=== PATIENT | female | born 1965 | race Caucasian/White ===

== ENCOUNTER 2016-10-30 10:30 | Inpatient (IN) | payer BC ==
[~2016-10-30] VITALS: Ht 157.5 cm; Wt 94.5 kg
--- NOTE | ~2016-10-30 | OR ---
PATIENT'S NAME: CHRIS KUNZ [facility] AGE: 51 Y [address] ROOM: [place] [id number] LOCATION: [facility] ADMIT DATE: 10/30/2016 OR/Procedure Report DISCHARGE DATE: 11/03/2016 FAMILY PHYSICIAN: PHYSICIAN, NO ATTENDING PHYSICIAN: Julio Boothe SURGEON: Julio Boothe MD INFORMATICS EDUCATOR: Ranjeet Weems PA-C. DATE OF PROCEDURE: 10/30/[address] BOOTHE / 11-06-2016 / MILAGROS PREOPERATIVE DIAGNOSES: Right Gustilo Davin type IIIB open fracture and dislocation of the talus. POSTOPERATIVE DIAGNOSES: Right Gustilo Davin type IIIB open fracture and dislocation of the talus. PROCEDURE: 1. Irrigation and debridement of right ankle fracture wound. Dimensions 12 cm in length x 4 cm width x 10 cm in depth. Debridement included skin, subcutaneous tissue, fascia, muscle, and bone. 2. Placement of spanning external fixator of the right ankle. 3. Complex primary closure of traumatic open fracture, soft tissue wound using nylon suture. 4. Use of intraoperative fluoroscopy, less than 1 hour. ANESTHESIA: General endotracheal anesthesia. FLUIDS: See Anesthesia report. ESTIMATED BLOOD LOSS: Less than 50 mL. SPECIMEN: None. COMPLICATIONS: None. DISPOSITION: Stable in PACU. COUNTS: All counts correct. IMPLANTS: Include a Jeri Maritza 3 spanning external fixator device. INDICATIONS: Ms. Kunz is a pleasant 51-year-old female, who underwent the noted procedures above. The risks, benefits, and alternatives pursuing surgical intervention were discussed with the patient in detail. She elected to proceed with surgery. Anesthesia was consulted for their perioperative evaluation of the patient. A preoperative nerve block was placed for pain control by the Anesthesia team. I marked the patient's right lower extremity PATIENT'S NAME: CHRIS KUNZ [facility] AGE: 51 Y [address] ROOM: [place] [address] LOCATION: [facility] ADMIT DATE: 10/30/2016 OR/Procedure Report DISCHARGE DATE: 11/03/2016 FAMILY PHYSICIAN: PHYSICIAN, NO ATTENDING PHYSICIAN: Julio Boothe indicating correct surgical site. DESCRIPTION OF PROCEDURE: The patient was brought from the holding area the operating room. A time-out was performed. General endotracheal anesthesia was administered. The patient has Ancef antibiotic was re-dosed intraoperatively. The right lower extremity then prepped and draped in a sterile fashion. Use of an Esmarch and tourniquet was deferred. I turned my attention the lateral aspect of the ankle. There is a 12 cm x 10 x 4 cm x 10 cm in depth traumatic wound. The talus was now rotated as it appeared to have been previously fully dislocated and an attempted reduction was done at the outside hospital. [place] had been placed to approximate the skin an outside institution. The kunal were removed. The wound was copiously irrigated with normal sterile saline solution. Using a 3 L of pulsatile normal sterile saline solution via pulsatile lavage. I carried out a thorough debridement of the nonviable skin, subcutaneous tissue, muscle, fascia, and bone. Notably, there was significant damage to the lateral dome of the talus and talar head. A small portion of the talus had soft tissue attachment at the level of the medial neck. The rest the soft tissue was traumatically stripped at the time of her initial injury. I performed a reduction maneuver and the talus did reduce into place. I brought the ankle and foot through a range of motion and found to be stable. In order to maintain the reduction, I placed a spanning external fixator. Two pins were placed in the tibia. One pin was placed in the calcaneus, and one pin was placed in the first metatarsal. A series of pin to bar and bar to bar clamps were used to bring the ankle out to length and to maintain the reduction of the talus. The pin at the first metatarsal was used to assistant general manager dorsiflexing the ankle. I introduced intraoperative fluoroscopy and confirmed the successful reduction of the talus and successful placement of a spanning external fixator device with the ankle in neutral dorsiflexion. I turned my attention back to the traumatic wound. A layered closure using nylon suture to approximate it was undertaken. Sterile dressing was placed in the form of Xeroform, followed by 4x4, Webril, and Kishor bandage. The purposes of providing compression. The patient was then transferred from the operating table onto the hospital bed and extubated. She was brought to the recovery room in stable condition. There were no intraoperative complications noted. PATIENT'S NAME: CHRIS KUNZ [facility] AGE: 51 Y [address] ROOM: [address] [address] LOCATION: G3N ADMIT DATE: 10/30/2016 OR/Procedure Report DISCHARGE DATE: 11/03/2016 FAMILY PHYSICIAN: PHYSICIAN, NO ATTENDING PHYSICIAN: Julio Boothe Of note, my PA, Ranjeet Weems PA-C, played an integral role in the intraoperative care of this patient. This included preoperative positioning, intraoperative expert retraction, and closing and dressing functions. IMPRESSION: The patient is status post the noted procedures above. PLAN: The patient will be nonweightbearing on the right lower extremity. She will be instructed to rest, ice, and elevate the leg. There is a kickstand in the posterior aspect of the external fixator to offload the heel and prevent pressure ulcer. Antibiotics in the form of Ancef will be continued per open fracture protocol. The hospitalist will continue to manage the patient's concomitant medical comorbidities. A postoperative CT scan will be obtained to assess the reduction. Dressings will be changed on postoperative day #2. I will continue to follow the patient closely in the postoperative period. MD ALICE POWELL/modfrankie /[id number] CORRECTED PER DR. BOOTHE / 11-06-2016 / KLD d: 10/31/16 0056 t: 11/06/16 1526, OPERATIVE SUMMARY
--- NOTE | ~2016-10-30 | DS ---
PATIENT'S NAME: CHRIS KUNZ [facility] AGE: 51 Y [address] ROOM: [address] [address] LOCATION: G3 ADMIT DATE: 10/30/2016 Discharge Summary DISCHARGE DATE: 11/03/2016 FAMILY PHYSICIAN: PHYSICIAN, NO ATTENDING PHYSICIAN: Julio Murry ADMITTING DIAGNOSIS: Right Gustilo Davin type IIIB open fracture and dislocation of the talus. DISCHARGE DIAGNOSIS: Right Gustilo Davin type IIIB open fracture and dislocation of the talus. SECONDARY DIAGNOSIS: Seasonal allergies. CONSULTATION: To the Hospitalist Service for medical management. PROCEDURES: The patient underwent the following procedures by Dr. Murry on October 30, 2016. 1. Irrigation and debridement of right ankle fracture wound. Dimension 12 cm in length x 4 cm in length x 10 cm in depth. Debridement including skin, subcutaneous tissue, fascia, muscle, and bone. 2. Placement of spanning external fixator of the right ankle. 3. Complex primary closure of traumatic open fracture, soft tissue wound using nylon suture. HISTORY OF PRESENT ILLNESS: The patient is a pleasant 51-year-old female, who was working on a roof when the ladder gave way on the day of admission. She fell approximately 10 feet down onto her right ankle. The patient reported rolling the ankle at that time. Also, she reported immediate pain, discomfort, and a wound with exposed bone at the lateral aspect of the ankle. She presented to an outside institution, where she was seen and evaluated. The wound was washed out surgically with the talus being relocated in the mortise, and the wound was subsequently closed. She was also splinted at that time. Relieving factors for the patient included rest, ice, elevation, and immobilization prior to surgery. She reported the pain at 10/10 at the time of the injury. When seen, the patient reported pain 3/10, and the Anesthesia Team provided her a regional block. When seen, the patient denied any constitutional symptoms such as fevers, chills, or night sweats. She also denied any dizziness, chest pain, shortness of breath, blurred vision, nausea, vomiting, or diarrhea. HOSPITAL COURSE: The patient was admitted to [facility] from an outside institution on October 30, 2016. She was taken to the OR for the above described procedure and tolerated it well. The patient was kept for approximately 72 hours of IV antibiotics in the form of Ancef and was switched over to p.o. medication prior to discharge. The patient was kept under PATIENT'S NAME: CHRIS KUNZ [facility] AGE: 51 Y [address] ROOM: [id number] [place], [place] [address] LOCATION: [facility] ADMIT DATE: 10/30/2016 Discharge Summary DISCHARGE DATE: 11/03/2016 FAMILY PHYSICIAN: PHYSICIAN, NO ATTENDING PHYSICIAN: Julio Murry adequate pain control. Her medications were optimized during admission, and medications were also adjusted during her admission for this. The Hospitalist Service followed the patient medically during her admission and optimized her for discharge. On November 03, 2016, the patient was found to be stable, and arrangements were made for her to be discharged home at that time. DISCHARGE MEDICATIONS: New medications: 1. Colace 100 mg p.o. b.i.d. p.r.n. constipation. 2. Lovenox 40 mg subcu daily. 3. Oxycodone 10 mg extended release p.o. q.12 hours. 4. Florastor 250 mg p.o. b.i.d. 5. Percocet 5/325 one to two tabs p.o. every 4 hours as needed for pain. 6. Keflex 500 mg p.o. t.i.d. 7. Diazepam 5 mg p.o. q.6 hours p.r.n. muscle spasm. 8. Levothyroxine 25 mcg p.o. daily. 9. The patient also was continued on her Zyrtec 10 mg p.o. daily. DISCHARGE INSTRUCTIONS: The patient is to be nonweightbearing of the right lower extremity. Her diet is as tolerated. Home Health will follow up with the patient for dressing changes. The patient is to keep her bandages clean, dry, intact. The patient was instructed to ice and elevate her right lower extremity. FOLLOWUP: The patient is to follow up with her family doctor in approximately 6 weeks for a thyroid check. The patient is to follow up with Dr. Murry in approximately 1 week for postoperative followup. DISCHARGE STATUS: GOOD MANDO J ANDRES, PA-C FOR MD CARIDAD POWELL/marty /[id number] d: 11/13/16 0124 t: 11/20/16 1634, DISCHARGE SUMMARY
--- NOTE | ~2016-10-30 | CON ---
PATIENT'S NAME: CHRIS KUNZ [facility] AGE: 51 Y [address] ROOM: [place] [address] LOCATION: [facility] ADMIT DATE: 10/30/2016 Consultation DISCHARGE DATE: FAMILY PHYSICIAN: PHYSICIAN, UNKNOWN ATTENDING PHYSICIAN: JG BOOTHE DATE OF CONSULTATION: 10/30/2016 REFERRING PHYSICIAN: Prakash RODRIGUEZ MD CHIEF COMPLAINT: Right ankle and foot pain. HISTORY OF PRESENT ILLNESS: Ms. Kunz is a pleasant 51-year-old female, who was working on a roof when the ladder gave way. She fell approximately 10 feet down onto her right ankle. She reports rolling the ankle. At that time, she reported immediate pain, discomfort, and a wound with exposed bone at the lateral aspect of the ankle. She presents to an outside institution, where she was seen and evaluated. The wound was washed out, the talus was relocated in the mortise, and the wound was subsequently closed. She was also splinted. Alleviating factors for the patient include rest, ice, elevation, and immobilization. She does report pain at 10/10 at the time of injury. She reports her pain is more of 3/10 and the Anesthesia team was provided a regional block. She currently denies any constitutional symptoms such as fever, chills, or night sweats. She also denies any dizziness, chest pain, shortness of breath, blurred vision, nausea, vomiting, or diarrhea. REVIEW OF SYSTEMS: A 10-point review of systems was undertaken and is negative other than what was noted above. PAST MEDICAL HISTORY: None. ALLERGIES: NO KNOWN DRUG ALLERGIES. MEDICATIONS: None. PHYSICAL EXAMINATION: VITAL SIGNS: Temperature pending, respirations 12, heart rate 74, and blood pressure 115/62. HEENT: Normocephalic and atraumatic. Extraocular movements are intact. PERRLA. Moist mucous membranes. Oropharyngeal airway is clear. PATIENT'S NAME: CHRIS KUNZ [facility] AGE: 51 Y [address] ROOM: [place] [address] LOCATION: [facility] ADMIT DATE: 10/30/2016 Consultation DISCHARGE DATE: FAMILY PHYSICIAN: PHYSICIAN, UNKNOWN ATTENDING PHYSICIAN: JG BOOTHE NECK: Supple. Trachea is in the midline. CARDIOVASCULAR: Regular rate and rhythm. CHEST: Normal symmetric respirations observed bilaterally. ABDOMEN: Soft, nontender, and nondistended. EXTREMITIES/MUSCULOSKELETAL: Right lower extremity: Focal examination of the patient's right lower extremity reveals she is grossly neurologically intact distally. Compartments of the thigh, leg, and foot are soft. There is good capillary refill in the toes. The patient just recently had a medial nerve block placed, but prior to that noted full sensation in the foot. She has a large open wound at the lateral aspect of the ankle with metallic kunal in place. IMAGING: Plain radiographs of the left ankle reveal evidence of a fracture dislocation of the talus. CT scan also reveals evidence of a fracture dislocation of the talus. The talus is malaligned. There is air in the soft tissues and significant soft tissue swelling. IMPRESSION: Right Gustilo-Davin type IIIB open fracture dislocation of the talus. PLAN: I had a long discussion with the patient today regarding her right ankle. Her injury is quite severe. I am recommending urgent irrigation and debridement of the right ankle with an open reduction of the talus and placement of a spanning external fixator device. I discussed the risks, benefits, and alternatives to pursuing a surgical intervention in detail. I discussed the risks of anesthesia, infection, bleeding, and/or injury to neurovascular structures. The patient's pain is fairly well controlled now that she has received a regional nerve block by the Anesthesia team. The patient expressed understanding of this. I explained her that for now, the best we can do is emergently get her to the operating room. The outcome for injury such as this is typically quite poor, may even result in fusion of the ankle. The likelihood of the talus bone going on to avascular necrosis is high. She will be nonweightbearing on the right lower extremity for now. Pain control will be maintained. Ancef antibiotics will be continued per open fracture protocol. The Anesthesia team was already placed a peripheral nerve block. Her tetanus has been updated. I did discuss her case with the transferring physician nurses medical assistants phlebotomists, Katie Berry PA-C from the [facility]. He and Dr. Starkey, the orthopedic surgeon communications operator performed an irrigation and debridement of the right ankle and foot wound, attempted to relocate the talus, and primarily closed the skin. The patient was transferred for definitive orthopedic care under my acceptance via fixed-wing aircraft. We will plan to PATIENT'S NAME: CHRIS KUNZ [facility] AGE: 51 Y [address] ROOM: [address] [address] LOCATION: [facility] ADMIT DATE: 10/30/2016 Consultation DISCHARGE DATE: FAMILY PHYSICIAN: PHYSICIAN, UNKNOWN ATTENDING PHYSICIAN: JG BOOTHE take the patient for surgery this evening. She is currently n.p.o. MD ALICE POWELL/marty /[id number] d: 10/31/16 0017 t: 10/31/16 0840, CONSULTATION REPORT
--- NOTE | ~2016-10-30 | CON ---
PATIENT'S NAME: VIKY KUNZ [facility] AGE: 51 Y [address] ROOM: [address] [address] LOCATION: G3N ADMIT DATE: 10/30/2016 Consultation DISCHARGE DATE: FAMILY PHYSICIAN: PHYSICIAN, UNKNOWN ATTENDING PHYSICIAN: JG BOOTHE DATE OF CONSULTATION: 10/30/2016 REFERRING PHYSICIAN: Prakash RODRIGUEZ MD REQUESTING PHYSICIAN: Jg Boothe MD CHIEF COMPLAINT: Right ankle fracture. HISTORY: History of present illness is obtained from visiting with Ms. Kunz herself, who is a reasonable historian; however, struggles to give extended information, given her level of pain. Also, was obtained from reviewing the chart and records sent with the patient from [place], [place]. Ms. Viky Kunz is a 51-year-old female, who resides in [place], [place]. She was removing shingles from the roof of their home last evening, approximately 9 o'clock at night when the ladder she was working from slipped. She fell onto concrete. She landed on her heels. At that point, she had an open fracture of her right ankle. She was ultimately driven to the Emergency Room in [place], [place], where she was seen. Ancef was administered along with tetanus and Dilaudid for pain control. Ultimately, she was taken to the OR for a washout and reapproximation of the talus the best they could. She was ultimately placed in a posterior splint, and kunal were used to close the wound. At that point, the thought was to take her to the OR in [place]. However, circumstances changed, and she was ultimately transferred to [facility] via fixed-wing, and arrives at our facility today. We are asked to consult for Medical consultation and clearance for OR. The patient has no past medical history, she states outside of some hypothyroidism, of which she is not necessarily always compliant with taking her medications for. The patient is quite drowsy throughout our interview. She is on EtCO2 monitor. This raised into the 50s as she dozes off. When she is awake and interacting, she is grimacing, crying, and having difficulty conversing, given her level of pain that she is rating 10/10. The patient really denies any pain elsewhere other than her right ankle at this point. She has had no fevers or chills. PATIENT'S NAME: VIKY KUNZ [facility] AGE: 51 Y [address] ROOM: [id number] [place], [place] [address] LOCATION: [facility] ADMIT DATE: 10/30/2016 Consultation DISCHARGE DATE: FAMILY PHYSICIAN: PHYSICIAN, UNKNOWN ATTENDING PHYSICIAN: JG BOOTHE REVIEW OF SYSTEMS: Reviewed and is negative outside of what is recorded in the history of present illness. PAST MEDICAL HISTORY: 1. Questionable hypothyroidism per patient. 2. Seasonal allergies, for which she takes medication for p.r.n. MEDICATIONS: Zyrtec 10 mg p.o. daily p.r.n. seasonal allergies. PAST SURGICAL HISTORY: 1. x3. 2. Tonsillectomy. 3. Appendectomy. SOCIAL HISTORY: The patient is . She lives as stated in [place], [place]. She has four children and two grandchildren. Tobaccoism. The patient does smoke one half a pack of tobacco daily and has x15 years. Alcohol: She denies use. Illicit drugs use: The patient denies. PERTINENT LABORATORY DATA AND X-RAYS: 1. Three-view of the right ankle demonstrates a fracture dislocation of the talus/calcaneus with significant anterior-lateral dislocation of the fracture fragments. 2. CT of the right ankle without contrast shows open injury to the right ankle with dislocated talus and multiple fractures. See report for more specific details. 3. Non-contrast CT of the C-spine showed no acute subluxation, dislocation, or fracture of the C-spine. 4. Non-contrast CT of the T-spine, no acute traumatic abnormality. 5. CT of the lumbar spine, no acute traumatic abnormality. 6. CT of the pelvis, no acute traumatic abnormality. Laboratory data from 10/29/2016 showed a white count of 11,100, hemoglobin of 16.7, MCV of 94.7, and platelets of 234. PT is 11.0 and INR is 1.04. Chemistry panel showed a potassium slightly low at 3.4, chloride of 104, bicarb of 23, BUN of 46.27, and creatinine of 1.3. LFTs were within normal limits. UA was negative. Urine tox screen was negative. PATIENT'S NAME: VIKY KUNZ [facility] AGE: 51 Y [address] ROOM: [address] [place] [id number] LOCATION: [facility] ADMIT DATE: 10/30/2016 Consultation DISCHARGE DATE: FAMILY PHYSICIAN: PHYSICIAN, UNKNOWN ATTENDING PHYSICIAN: JG BOOTHE PHYSICAL EXAMINATION: VITAL SIGNS: Temperature was 98.8, pulse was 10, respirations were around 8, blood pressure was 112/69, and O2 saturation was 91% on room air. EtCO2 monitor ranges from 45 to 50s. BMI is 36.9. GENERAL: Well developed and obese 51-year-old female, who is in obvious distress and pain throughout our interview. She grimaces and cries out throughout our interview process. HEENT: Normocephalic and atraumatic. Mucous membranes are moist. NECK: No thyromegaly that I can appreciate. CHEST: Diminished, but clear to auscultation. CARDIOVASCULAR: Regular rhythm and rate. No murmurs, bruits, or adventitious sounds. ABDOMEN: Obese, soft, and nontender. No organomegaly was noted. EXTREMITIES: The patient does have a splint placed to the right ankle. She is neurologically intact. NEUROLOGIC: Cranial nerves II through XII were grossly intact. She is able to move all of her extremities. She will follow commands. She is alert and orientated; however, somewhat drowsy and does awaken easily when aroused during our interview for answers. ASSESSMENT AND PLAN: A 51-year-old female with a right ankle open fracture following an approximate ten-feet fall off a ladder. Dr. Boothe is to assess the patient. 1. Poorly-controlled pain. The patient is not controlled in terms of pain, and unfortunately is having difficulties with respiratory status, given the amount of morphine that the patient has received. Per verbal report, the patient has received approximately 62 mg of morphine from approximately 1 a.m. till 10 a.m. this morning. Her respirations are slightly depressed. We will need to monitor her closely. In lieu of this, I believe it will be a good idea to go ahead and get Anesthesia involved for a block. This was discussed with Dr. Boothe, who concurs. We will consult Anesthesia. 2. Deep vein thrombosis prophylaxis is currently on hold. We will use sequential compression devices in the interim awaiting the OR. 3. Obesity with a body mass index of 36.9. 4. Seasonal allergies, stable. 5. Tobaccoism. We will offer nicotine patch in the postoperative period if she is interested. BRIANNA BIGGS PA-C FOR BALJEET MORALES MD PATIENT'S NAME: VIKY KUNZ [facility] AGE: 51 Y [address] ROOM: [place] [address] LOCATION: [facility] ADMIT DATE: 10/30/2016 Consultation DISCHARGE DATE: FAMILY PHYSICIAN: PHYSICIAN, UNKNOWN ATTENDING PHYSICIAN: JG BOOTHE/marty /[id number] d: 10/30/16 2259 t: 11/05/16 1653, CONSULTATION REPORT
--- NOTE | 2016-10-30 11:46 | NUR ---
PT is 51 y/o female admit for right dislocated/fx'd ankle for . Pt is extremely drowsy from pain meds given en route. Pt arrived via fixed wing. Pt fell off ladder while working and has open fx to r)ankle. Multiple abrasions from fall. O2 per NC at 3L. Monitors on per protocol. No allergies. Hx sinus problems and walking pneumonia. Smoker 1/2 PPD.
[2016-10-30] MEDS ORDERED: ZYRTEC10 MG PO (14:47)
[2016-10-30 15:49] LABS: BASOPHIL % 0.4 %; EOSINOPHIL # 0.4 K/uL (0.0-0.5); EOSINOPHIL % 3.7 %; HEMATOCRIT 40.2 % (33.0-46.0); HEMOGLOBIN 13.3 g/dL (10.0-15.0); IMMATURE GRANULOCYTE % 0.4 %; LYMPHOCYTE # 2.3 K/uL (0.8-4.0); MCH 31.3 pg (27.0-34.0); MCHC 33.1 gm/dL (32.0-36.5); MCV 94.6 fl (83.0-98.0); MONOCYTE # 0.7 K/uL (0.0-1.0); MONOCYTE % 6.9 %; MPV 9.8 fl (9.4-12.4); NEUTROPHIL # (ANC) 6.6 K/uL (1.8-7.8); NEUTROPHIL % 65.6 %; NRBC % 0 /100WBC (0-0.00); PLATELET COUNT 206 K/uL (150-450); RBC 4.25 M/uL (3.50-5.50)
[2016-10-30 16:23] LABS: ANION GAP 8.9 (10.0-19.0); CALCIUM 7.7 mg/dL (8.5-10.5); CREATININE 1.1 mg/dL (0.5-1.1); POTASSIUM 3.9 mMol/L (3.7-5.1)
--- NOTE | 2016-10-30 18:28 | NUR ---
Significant Event: TOOK OVER CARES AT 1445. IS VERY SLEEPY BUT ALERT. O2 ON AT 1L. SPLINT/HARPAL WRAP D/I. POPLITEAL BLOCK PUT IN AT 1630..CSM GOOD IN ALL EXTREM...C/O BEING SORE ALL OVER...WENT TO SURGERY AT 1815... Follow up:
--- NOTE | 2016-10-31 05:09 | NUR ---
Shift Summary: Patient returned from surgery at 2119. She has an external fixator to right ankle. Has full feeling to right leg/foot. Weaned to room air. Tolerating regular diet well. Has zaragoza that needs to be removed today after patient has been up with PT. Taking Percocet and Morphine IV for pain.
--- NOTE | 2016-10-31 11:25 | NUR ---
Introduced self/role to patient. She lives in [place], [place], with her and children. She would prefer to use crutches but they have her using a walker. Will place scripts for both on her chart. She questioned if she would need HHC for any dressings changes? I will look into that and get back to her. She also asked about using a knee scooter? I differed that questions and directed her to ask the therapies/doctor if that would be recommended with her fixator. Added my name to her marker board will continue to follow. 0609 left a note on the chart for Dr. Murry if he thought HHC would be needed for anything. Scripts placed on chart.
--- NOTE | 2016-10-31 16:45 | NUR ---
doing well. csm to right foot-slightly moving toes, toes warm, tingling to right foot. ext fixator intact right foot, kierra wrap d/i. up to br with one assist and walker or crutches, voiding since zaragoza removed. oxycontin started at 1120, percocet last at 1630. morphine iv last at 1000. hourly sats have been above 90 %, when falls asleep, does need 1l/min of O2 to keep sats above 90%. home with home health possibly tomorrow or sat.
--- NOTE | 2016-11-01 03:07 | NUR ---
Shift Summary: Patient can ambulate with crutches to the BR with one assist. On room air except when sleeping, needs O2. Having a lot of pain to right ankle. Can wiggle right toes, but they are tingling. She does a good job keeping right leg highly elevated. Tolerating regular diet well. Overdue to have a BM. Voiding without difficulty. Taking 2 percocet q 4hr and Morphine 4mg IV for breakthrough pain.
--- NOTE | 2016-11-01 11:20 | NUR ---
Called Allyson for [facility]. He wasn't sure on [facility] but could put the paperwork on the chart and get a referral started. If nothing else may be good to start after the first followup appointment next week. Home tomorrow. 1130 Called Claudia [facility] #[phone] and spoke to Coco. Made referral. Placed a note on the chart with contact info for [facility] and to fax orders if leaves. Also placed a note on the order sheet to be specific about what you want [facility] to do such as dressing changes. 1140 Followed up with patient. Gave her scripts and DME stores here in [place] so could pick those items up today as they will be closed tomorrow. 1220 Faxed info to [facility] #[phone]
--- NOTE | 2016-11-01 16:42 | NUR ---
Pt alert, oriented, groggy at times and talks slow. She has had pain rated up to 9 this shift. Has had percocet 2 tabs x 2, last at 1410. Morphine 2 mg x2 last at 1615. Pain gets down to 5. Has been up to BR x3 with crutches and one asst and does well with NWB Rt. Pt has been weaned off O2 and sats now over 90%. Dressing to Rt ankle changed this morning by Dayan DOHERTY. Has incision intact with kunal Rt lateral ankle and has pin sites bilat heel and also 2 on anterior oneil. All sites WNL. Small amt drng on dressing. Redressed with xeroform around pin sites and incision. Gauze around pin sites and over incision then sofban around and compression wraps 3" and 4". Has been dry since. Ice to ankle. Has elevated higher than heart on 2 pillows and knee gatch up. Pt has eaten fair. Had good pedal pulse noted Rt foot when dressing off. Foot edematous. Moves toes well, warm, emilie well. Pt had numbness and tingling Rt foot this AM that has improved over this shift. Has 2 SL. Plan discharge tomorrow.
--- NOTE | 2016-11-02 05:04 | NUR ---
Pt one assist to bathroom w/ crutches. Pain controlled with two tabs of percocet last at 0340. Lower extremity elevated with pillows and bed joyce. Ice on. CSM's intact. Pt denies numbness tingling at end of shift, but describes pain as throbbing. Pt on scheduled oxycontin. VSS. RA all night. Plan is to discharge today.
--- NOTE | 2016-11-02 18:37 | NUR ---
Significant Event: Ambulates with SBA and crutches. Maintains NWB to R) leg. External fixator and dressing C/D/I. Voids without difficulty. Percocet 2 tabs last at 1200 and Valium 5mg last at 1340. IV Ancef every 8 hours. Possible dismissal tomorrow. Follow up:
--- NOTE | 2016-11-03 04:45 | NUR ---
Significant Event: Alert/oriented x3. spent the night. Refused ice early in shift, then changed mind. Pain has been 8-9/10, gave scheduled Oxycontin ER at 2213, Morphine 2 mg IVP at 0026, 0112; Morphine 4 mg IVP at 0227; 2 Percocets at 0026, 0440; Valium at 2010. Pain level at 0440 was 6/10, tolerable. Voids well per bathroom using crutches, assists. VSS. Room air. Dressing C/D/I. Refused foot pumps. Right lower extremity elevated. Wiggles toes. Possible dismissal today. Saline locks in left AC and right anterior forearm. Follow up:
[2016-11-03] MEDS ORDERED: COLACE100 MG PO (13:36)
[2016-11-03] MEDS ORDERED: LOVENOX 4040 MG/0.4 SUB-Q (13:37)
[2016-11-03] MEDS ORDERED: OXYCONTIN EXTEN10 MG PO (13:38)
[2016-11-03] MEDS ORDERED: FLORASTOR250 MG PO (13:39)
[2016-11-03] MEDS ORDERED: PERCOCET 5-3251 EACH PO (13:40)
[2016-11-03] MEDS ORDERED: KEFLEX500 MG PO (13:41)
[2016-11-03] MEDS ORDERED: VALIUM5 MG PO (13:42)
[2016-11-03] MEDS ORDERED: LEVOTHROID (SY25 MCG PO (13:43)
--- NOTE | 2016-11-03 18:04 | NUR ---
Significant Event: Ambulates with SBA and crutches. Dressing and fixator D/I. Voids without difficulty. BM prior to dismissal. Percocet 2 tabs at 1345. Valium 5mg at 1500. Óscar education given with dismissal instructions, patient and state understanding. IVs d/cd. Dismissed to home with per private vehicle. Follow up:
[2016-11-26] MEDS ORDERED: HYDROCODON-ACE1 EAC4 PO (10:14)
[2016-11-26] MEDS ORDERED: ACIDOPHILUS100 M1 PO (10:15)
[2016-11-26] MEDS ORDERED: CITRACAL+D(315M1 TAB PO (10:19)
[2016-11-26] MEDS ORDERED: VITAMIN C1000 MG PO (10:19)
[2016-11-26] MEDS ORDERED: BENADRYL25 MG PO (10:22)
== END 2016-11-03 16:00 | disposition disaster alternative care site (69) | DRG 505 ==
LOC: G3N 10:57
PROVIDERS: Physician Assistant; ADMIT Orthopaedic Surgery Adult Reconstructive Orthopaedic Surgery
DX: S82.891C Other fracture of right lower leg, initial encounter for open fracture type IIIA, IIIB, or IIIC (principal); E03.9 Hypothyroidism, unspecified; F17.200 Nicotine dependence, unspecified, uncomplicated; E66.9 Obesity, unspecified; Z68.36 Body mass index [BMI] 36.0-36.9, adult; W11.XXXA Fall on and from ladder, initial encounter; Y93.H3 Activity, building and construction; Y92.018 Other place in single-family (private) house as the place of occurrence of the external cause
CPT/HCPCS: C1713; J0690; J1100; J1650; J2060; J2270; J2405; J7030

== ENCOUNTER → 2016-10-30 | Outpatient (CLI) | payer BC ==
[~2016-10-30] MED LIST: ACIDOPHILUS100 M1 PO; BENADRYL25 MG PO; CITRACAL+D(315M1 TAB PO; COLACE100 MG PO; FLORASTOR250 MG PO; HYDROCODON-ACE1 EAC4 PO; KEFLEX500 MG PO; LEVOTHROID (SY25 MCG PO; LOVENOX 4040 MG/0.4 SUB-Q; OXYCONTIN EXTEN10 MG PO; PERCOCET 5-3251 EACH PO; VALIUM5 MG PO; VITAMIN C1000 MG PO; ZYRTEC10 MG PO
== END | disposition disaster alternative care site (69) ==
LOC: GAIR 10:39 → GAMB 10:39
DX: S99.919A Unspecified injury of unspecified ankle, initial encounter (principal); S82.899D Other fracture of unspecified lower leg, subsequent encounter for closed fracture with routine healing; X58.XXXD Exposure to other specified factors, subsequent encounter
CPT/HCPCS: A0425; A0428

== ENCOUNTER → 2016-11-27 | Day surgery (SDC) | payer BC ==
[~2016-11-27] VITALS: Ht 157.5 cm; Wt 91.4 kg
--- NOTE | ~2016-11-27 | OR ---
PATIENT'S NAME: CHRIS KUNZ [facility] AGE: 51 Y [address] ROOM: [place] [address] LOCATION: [facility] ADMIT DATE: 11/27/2016 OR/Procedure Report DISCHARGE DATE: FAMILY PHYSICIAN: PHYSICIAN, NO ATTENDING PHYSICIAN: JG BOOTHE SURGEON: Jg Boothe MD [place]: Ranjeet Weems PA-C DATE OF PROCEDURE: 11/27/2016 PREOPERATIVE DIAGNOSIS: Right ankle open fracture and dislocation. POSTOPERATIVE DIAGNOSIS: Right ankle open fracture and dislocation. PROCEDURES PERFORMED: 1. Adjustment of spanning external fixator of right lower extremity under anesthesia. 2. Use of intraoperative fluoroscopy, less than one hour. ANESTHESIA: Sedation with peripheral nerve blocks. FLUIDS: See anesthesia report. ESTIMATED BLOOD LOSS: Minimal. TOURNIQUET: None. SPECIMENS: None. COMPLICATIONS: None. DISPOSITION: Stable, in PACU. INDICATIONS: Ms. Kunz is a pleasant, 51-year-old female who underwent the noted procedures above. The risks, benefits, and alternatives to pursuing surgical intervention were discussed with the patient in detail. She elected to proceed with surgery. Anesthesia was consulted for their perioperative evaluation of the patient. I marked the patient's right lower extremity, indicating the correct surgical site. DESCRIPTION OF PROCEDURE: The patient was brought from the holding area to the operating room. A time-out was performed. Peripheral nerve blocks were previous placed in the holding area. Sedation was administered. I introduced intraoperative fluoroscopy. I fluoro'd the ankle and found it to be reduced. There was some widening laterally at the lateral border of the PATIENT'S NAME: CHRIS KUNZ [facility] AGE: 51 Y [address] ROOM: [place] [address] LOCATION: [facility] ADMIT DATE: 11/27/2016 OR/Procedure Report DISCHARGE DATE: FAMILY PHYSICIAN: PHYSICIAN, NO ATTENDING PHYSICIAN: JG BOOTHE talus and fibula. I adjusted ex-fix to further dorsiflex the ankle and placed the ankle in more valgus at the level of the ankle joint. The external fixator was adjusted using a series of wrenches. Final fluoroscopic images of the ankle revealed evidence of a successful closed reduction of the ankle joint with adjustment of the spanning external fixator. Sterile dressings were placed over the closed traumatic wound over the lateral aspect of the ankle in the form of Xeroform, followed by 4x4, Webril, and Kishor bandage. There were no intraoperative complications noted. Of note, my PA, Ranjeet Weems PA-C, played an integral role in the intraoperative care of this patient. This included preoperative positioning, intraoperative expert retraction, and dressing functions. IMPRESSION: The patient is status post the noted procedures above. PLAN: The patient will be nonweightbearing on the right lower extremity. She will be instructed to rest, ice, and elevate the leg going forward. Postoperative pain control will be in the form of nerve blocks and oral pain medicine. I have instructed her to perform local wound care at home as the traumatic lateral wound over the lateral aspect of the ankle and foot appears to be healing, albeit slowly. She will be discharged home from the PACU provided she meets PACU discharge criteria. She will follow up in my office in 2 weeks for repeat clinical evaluation. MD ALICE POWELL/marty /[id number] d: 11/27/16 1135 t: 11/27/16 1315, OPERATIVE SUMMARY
[2016-11-27 08:29] LABS: BASOPHIL % 0.8 %; EOSINOPHIL # 0.4 K/uL (0.0-0.5); EOSINOPHIL % 8.6 %; HEMATOCRIT 39.3 % (33.0-46.0); HEMOGLOBIN 13.7 g/dL (10.0-15.0); IMMATURE GRANULOCYTE % 0.2 %; LYMPHOCYTE % 40.5 %; MCH 31.7 pg (27.0-34.0); MCHC 34.9 gm/dL (32.0-36.5); MONOCYTE # 0.4 K/uL (0.0-1.0); MONOCYTE % 7.8 %; MPV 9.5 fl (9.4-12.4); NEUTROPHIL # (ANC) 2.1 K/uL (1.8-7.8); NEUTROPHIL % 42.1 %; NRBC % 0 /100WBC (0-0.00); RBC 4.32 M/uL (3.50-5.50); RDW-CV 11.9 % (11.9-14.6)
[2016-11-27 08:36] LABS: PLATELET COUNT 267 K/uL (150-450)
== END | disposition disaster alternative care site (69) ==
LOC: GPOC 11-26 10:00 → GSDC 07:12
PROVIDERS: Orthopaedic Surgery Adult Reconstructive Orthopaedic Surgery
PROC: 0SW Lower Joints, Revision (ICD-10-PCS; principal; 2016-11-27)
DX: Z46.89 Encounter for fitting and adjustment of other specified devices (principal); Z98.890 Other specified postprocedural states
CPT/HCPCS: J0690; J1100; J2001; J2250; J2405; J2765; J3010; J7120